=== PATIENT | male | born 1955 | race Caucasian/White ===

== ENCOUNTER 2019-05-09 06:31 | Day surgery (SDC) | payer OTHER ==
[2019-04-29 17:15] VITALS: BMI 40.0
[2019-05-09] MEDS ORDERED: MIDAZOLAM HCL 2 MG/2 ML SINGLE DOSE VIAL ONE (08:54)
[2019-05-09] MEDS ORDERED: PROPOFOL 20 ML ONE ×2 (08:54)
[2019-05-09] MEDS ORDERED: SODIUM CHLORIDE 0.9% P/F 10 ML VIAL IJ ONE (08:55)
[2019-05-09] MEDS ORDERED: KETOROLAC TROMETHAMINE 30 MG/1 ML VIAL ONE (08:55)
[2019-05-09] MEDS ORDERED: ceFAZolin SODIUM 1 GM VIAL ONE (08:55)
[2019-05-09] MEDS ORDERED: DEXAMETHASONE SOD PHOSPHATE 4 MG/1 ML VIAL ONE (08:55)
[2019-05-09] MEDS ORDERED: LIDOCAINE HCL/PF 2% SDV 5ML VIAL ONE (08:55)
[2019-05-09] MEDS ORDERED: ONDANSETRON 4 MG/2 ML VIAL ONE ×2 (08:55→10:03)
[2019-05-09] MEDS ORDERED: oxyCODONE HCL 5 MG TABLET PO PRN ×2 (09:06)
[2019-05-09] MEDS ORDERED: ONDANSETRON 4 MG/2 ML VIAL IVPUSH PRN (09:06)
[2019-05-09] MEDS ORDERED: ceFAZolin SODIUM 1 GM VIAL IVPB ONE (09:14)
[2019-05-09] MEDS ORDERED: LACTATED RINGERS SOLUTION 1,000 ML IV SCH (09:15)
[2019-05-09] MEDS ORDERED: BUPIVACAINE HCL/PF 0.25% (2.5MG/ML) 10 ML VIAL IJ ONE (09:23)
[2019-05-09] MEDS ORDERED: DESFLURANE GAS 240 ML BOTTLE IH ONE (09:31)
[2019-05-09] MEDS ORDERED: oxyCODONE HCL 5 MG TABLET ONE (10:33)
[2019-05-09 12:12] VITALS: BP 136/78; PULSE 62; TEMP 97.9
--- NOTE | 2019-05-09 13:26 | OP ---
DATE OF OPERATION: 05/09/2019 Done at [facility] SURGEON: Tre Marcial MD DIRECT SERVICE WORKER: DANIEL Tom PREOPERATIVE DIAGNOSES: 1. Left knee medial and lateral meniscal tear. 2. Left knee cartilage injury. 3. Left knee synovitis. POSTOPERATIVE DIAGNOSES: 1. Left knee medial and lateral meniscal tear. 2. Left knee cartilage injury. 3. Left knee synovitis. PROCEDURE: 1. Left knee arthroscopy with partial meniscectomy medial and lateral meniscus, CPT code 80040. 2. Left knee arthroscopy with chondroplasty and abrasion-plasty, CPT code 47362. 3. Left knee arthroscopy with synovectomy, CPT code 64950. FINDINGS: 1. Medial meniscus [id number]-[id number] horn tear inner 1/3. 2. Lateral meniscus posterior horn tear. 3. Synovitis patellofemoral medial and lateral notch area. 4. 8-cm x 6-cm central grade 3 changes medial femoral condyle, changes medial tibial plateau. 5. ACL and PCL intact. 6. Minor diffuse grade 2 changes lateral femoral condyle and tibial plateau. 7. Anterior grade 2 cartilage injury with grade 3-4 changes central 1/3 patellofemoral trochlea. PROCEDURE: Informed consent was obtained. The patient came to the operating room, where the lower extremity was prepped and draped in a sterile fashion. A tourniquet was placed on the upper thigh, but not inflated. Using standard arthroscopic technique, a lateral incision and portal was made to allow for introduction of the camera into the suprapatellar bursa. This was then taken to the medial joint line, where under direct visualization, a medial incision and portal was made. Excessive synovium noted in the medial, lateral and patellofemoral and notch area was removed by an upbiter, shaver and Bovie cautery. This was found to bring in inflammatory tissue into the joint surface, a source of pain and dysfunction. Probing of the medial and lateral meniscus found tears, as described in the findings. These were removed with the upbiter and shaver and taken back to a stable rim. Grade 2 to 3 degenerative changes were treated with a chondroplasty, removing all flaking surfaces with low-setting Bovie along the periphery to prevent further flaking. Grade 4 changes, as noted, were treated with an abrasoplasty, creating a bleeding surface at the bone/cartilage interface. Aggressive debridement with shaver/mary created bleeding surface. Micro fracture also done when indicated in findings. All areas of the knee were once again reexamined. The knee was then drained and a single suture was placed in all portals. A sterile dressing was placed and the patient was transferred to the recovery room without complication. The PA listed above was present and assisted at surgery. Their presence was absolutely medically necessary for the completion of the procedure. They helped hold the arthroscopy, pass instruments (and implants when indicated) and the procedure could not have been completed without their assistance. TRE MARCIAL M.D. [id number]
--- NOTE | 2019-05-13 14:39 | PATH ---
Surgical Pathology Report Patient Name: TESSA ROWLAND Med. Rec. #: [id number] /Age/Gender: 1955 (Age: 64) / M Account: [id number] Location: [facility] [place] [facility] Taken: 05/09/2019 Received: 05/09/2019 Reported: 05/13/2019 Physicians: Tre Starr M.D. Specimen(s) Received SHAVINGS LEFT KNEE Clinical History Internal derangement left knee Final Diagnosis LEFT KNEE SHAVINGS: FRAGMENTS OF FIBROSYNOVIAL TISSUE WITH REACTIVE HYPERPLASIA AND FOCAL DEGENERATIVE CHANGE. CARTILAGINOUS TISSUE WITH CHONDROCALCINOSIS Electronically Signed Mireille Serrano M.D. Gross Description Received in formalin, labeled "left knee shavings," is a 4.5 x 3.0 x 0.3 cm. aggregate of mejia-yellow soft tissue fragments. A enrollment representative portion is submitted in one cassette. /05/12/2019 [facility]05/12/2019
== END 2019-05-09 12:12 | disposition home or self-care (01) ==
LOC: FASU 06:31
PROVIDERS: ATTEND Orthopaedic Surgery
PROC: 0SBD4ZZ Excision of Left Knee Joint, Percutaneous Endoscopic Approach (ICD-10-PCS; 2019-05-09)
PROC: 0SBD4ZZ Excision of Left Knee Joint, Percutaneous Endoscopic Approach (ICD-10-PCS; 2019-05-09)
PROC: 0SBD4ZZ Excision of Left Knee Joint, Percutaneous Endoscopic Approach (ICD-10-PCS; principal; 2019-05-09 09:27)
DX: S83.242A Other tear of medial meniscus, current injury, left knee, initial encounter (principal); S83.282A Other tear of lateral meniscus, current injury, left knee, initial encounter; S83.8X2A Sprain of other specified parts of left knee, initial encounter; M65.862 Other synovitis and tenosynovitis, left lower leg; X58.XXXA Exposure to other specified factors, initial encounter; Y93.9 Activity, unspecified; Y92.9 Unspecified place or not applicable
CPT/HCPCS: 82962; 88304-TC; 94760